=== PATIENT | male | born 1935 | race Caucasian/White ===

== ENCOUNTER 2016-10-05 18:22 | Observation (INO) | payer MEDICARE, OTHER ==
[~2016-10-05] VITALS: Ht 188 cm; Wt 81.1 kg
[~2016-10-05 18:22] MED LIST: CATAPRES0.1 MG PO; CELEBREX200 MG PO; CYCLOBENZAPRINE10 MG PO; HYDROCODONE-APA1 TAB PO; ICAPS AREDS1 TAB.SA PO; KLONOPIN0.5 MG PO; LOTREL 2.5-101 EACH PO; LOTREL 5/20 MG1 CAP; NORVASC10 MG PO; NORVASC5 MG PO; OCUVITE TABLET1 TA1; PRAVASTATIN SOD10 MG PO; TEKTURNA150 MG PO; VALIUM5 MG PO
[2016-10-05 21:00] LABS: APTT 40.3 SECONDS (22.8-39.4); INR 1.15 (0.85-1.17); PROTIME 14.5 SECONDS (11.6-15.0)
[2016-10-05 21:05] LABS: ALBUMIN 3.8 g/dL (3.4-5.0); ANION GAP 11.9 mmol/L (8-16); BILIRUBIN - TOTAL 0.26 mg/dL (0.2-1.3); CALCIUM 7.3 mg/dL (8.5-10.1); CARBON DIOXIDE 27.4 mmol/L (21.0-32.0); CREATININE - SERUM 2.2 mg/dL (0.6-1.3); POTASSIUM - SERUM 5.3 mmol/L (3.5-5.1); PROTEIN - SERUM 7.3 g/dL (6.4-8.2)
--- NOTE | 2016-10-06 00:56 | NUR ---
PT ARRIVED VIA W/C FROM ER. NO DISTRESS NOTED. WILL CONTINUE TO MONITOR.
[2016-10-06 01:23] VITALS: BP 160/88; Ht 188 cm; Wt 81.1 kg
[2016-10-06] MEDS ORDERED: ZESTRIL20 MG PO (01:40)
--- NOTE | 2016-10-06 02:01 | NUR ---
ADMISSION ASSESSMENT, HISTORY AND HOME MED LIST COMPLETED. PT REFUSED IV NS AND MORPHINE MANAGING BROKER. IV TO LAC SL. SITE BLEEDING. AREA CLEANED AND REDRESSED. DENIES ANY DISCOMFORT. SR UP X2, CALL LIGHT WITHIN REACH.
--- NOTE | 2016-10-06 04:24 | NUR ---
PT RESTING WITH EYES CLOSED. RESP EVEN AND REGULAR. SR UP X2, CALL LIGHT WITHIN REACH.
[2016-10-06 04:30] VITALS: BP 158/96
--- NOTE | 2016-10-06 05:08 | NUR ---
PT HAS C/O GARCIA. IVNS AT 100CC/HR AND MORPHINE PIPE AND BOILER COVERS SUPERVISOR INITIATED TO LAC. PT INSTRUCTED IN USE OF PIPE AND BOILER COVERS SUPERVISOR. MORPHINE 1MG Q10 MINUTES WITH NO LOCKOUT. WILL CONTINUE TO MONITOR.
--- NOTE | 2016-10-06 06:39 | NUR ---
PT STATESHA GONE AT THIS TIME. TEMP NOW 99.5. NEEDS MET; WILL CONTINUE TO MONITOR.
[2016-10-06 08:59] VITALS: BP 139/97
[2016-10-06 12:14] VITALS: BP 148/90
[2016-10-06 12:38] LABS: BASOPHILS 0 % (0.0-2.0); EOSINOPHILS 0 % (0-7); HEMATOCRIT 34.7 % (42.0-54.0); HEMOGLOBIN 11.1 g/dL (13.5-17.5); IMMATURE GRANULOCYTES 0.3 % (0-5); LYMPHOCYTES 11.2 % (15-50); MCH 29.1 pg (26.0-34.0); MCV 91.1 fL (80.0-100.0); MEAN PLATELET VOLUME 8.8 fL (7.4-10.4); MONOCYTES 12.7 % (2-11); NEUTROPHILS 75.8 % (40-80); RBC 3.81 10x6/uL (4.20-6.10); RDW 13.8 % (11.5-14.5); WBC 3.4 10x3/uL (4.8-10.8)
[2016-10-06 12:39] LABS: PLATELET COUNT 86 10x3/uL (130-400)
[2016-10-06 13:00] LABS: ANION GAP 13.7 mmol/L (8-16); CALCIUM 8.4 mg/dL (8.5-10.1); CARBON DIOXIDE 25.1 mmol/L (21.0-32.0); CREATININE - SERUM 1.9 mg/dL (0.6-1.3); PLATELET ESTIMATE DECREASED; POTASSIUM - SERUM 4.8 mmol/L (3.5-5.1)
[2016-10-06 16:13] VITALS: BP 137/82
[2016-10-06] MEDS ORDERED: ZPAK PO (16:50)
[2016-10-06] MEDS ORDERED: PREDNISONE10 MG PO (16:52)
== END 2016-10-06 17:37 | disposition home or self-care (01) ==
LOC: OBSVTIME → D.ER 18:22 → OBSVTIME 23:20 → D.M2 23:20 → D.ER 23:20 → D.M2 10-06 14:31
PROVIDERS: Physician Assistant Medical; ADMIT Family Medicine
DX: J18.9 Pneumonia, unspecified organism (principal); N18.4 Chronic kidney disease, stage 4 (severe); N28.0 Ischemia and infarction of kidney; J20.9 Acute bronchitis, unspecified; I71.2 Thoracic aortic aneurysm, without rupture; E87.5 Hyperkalemia; I12.9 Hypertensive chronic kidney disease with stage 1 through stage 4 chronic kidney disease, or unspecified chronic kidney disease; D69.6 Thrombocytopenia, unspecified; M48.07 Spinal stenosis, lumbosacral region